=== PATIENT | male | born 1940 | race American Indian/Alaskan Native ===

== ENCOUNTER 2023-02-13 10:48 | Day surgery (SDC) | payer MEDICARE, OTHER ==
[~2023-02-13] VITALS: Ht 170.2 cm; Wt 79.0 kg
[~2023-02-13 10:48] MED LIST: ALDACTONE100 MG PO; ASPI81CH PO; ATOR20 PO; Bisoprolol Fumar5 MG PO; DIGOX125 MC1 PO; DILT120 PO; EUTHYROX175 MCG PO; Flomax0.4 MG PO; JARDIANCE25 MG PO; NOVOLOG FL100 UNIT/3 SQ; Neurontin 100100 MG PO; OXYCODONE ACET; Penicillin V P500 MG PO; TORSE20 PO
[2023-02-13 11:22] VITALS: BP 124/72
[2023-02-13 14:44] VITALS: BP 120/83
[2023-02-13 14:45] VITALS: BP 125/84
[2023-02-13 15:08] VITALS: BP 128/83
[2023-02-13 15:15] VITALS: BP 114/83
[2023-02-13 15:31] VITALS: BP 110/83
--- NOTE | 2023-02-13 16:02 | NUR ---
PT AND VERBALIZED UNDERSTANDING OF WRITTEN AND VERBAL D/C INST. IV REMOVED. PT AMB TO W/C /S DIFFICULY. PT TAKEN OUT OF THE HRT CENTER VIA W/C.
== END 2023-02-13 16:00 | disposition home or self-care (01) ==
LOC: MHTC 10:48
DX: Z45.010 Encounter for checking and testing of cardiac pacemaker pulse generator [battery] (principal); I49.5 Sick sinus syndrome; E11.9 Type 2 diabetes mellitus without complications; I25.10 Atherosclerotic heart disease of native coronary artery without angina pectoris; E78.5 Hyperlipidemia, unspecified; I48.20 Chronic atrial fibrillation, unspecified; Z79.82 Long term (current) use of aspirin; Z79.899 Other long term (current) drug therapy
CPT/HCPCS: 33228; 36415; 80048; 85025; 85610; 99152; 99153; C1781; C1785; J0690; J1644; J2250; J3010; J7030; J7040